=== PATIENT | female | born 1980 | race Caucasian/White ===

== ENCOUNTER 2022-11-06 02:59 | Emergency (ER) | payer OTHER ==
[2022-11-06] MEDS ORDERED: MORPHINE SULFATE 4 MG/ML SYRINGE IVP STA (03:09)
[2022-11-06] MEDS ORDERED: KETOROLAC 15 MG/ML 1 ML VIAL IVP STA (03:09)
[2022-11-06] MEDS ORDERED: ONDANSETRON 4 MG/2 ML VIAL IVP STA (03:09)
[2022-11-06] MEDS ORDERED: SODIUM CHLORIDE 0.9% 1,000 ML IV STA (03:09)
--- NOTE | 2022-11-06 03:18 | ED ---
Abdominal Pain HPI - General Chief Complaint: Abdominal Pain Stated Complaint: Abdominal pain Time Seen by Provider: 11/06/22 03:02 Source: patient, RN notes reviewed, old records reviewed Mode of arrival: ambulatory Limitations: no limitations - History of Present Illness Initial Comments: This is a 42-year-old female to the emergency department for evaluation today. Today she presents for evaluation in regards to abdominal pain with history of gallbladder disease is feels just a prior gallbladder issue and pain. Positive nausea no vomiting symptoms started today multiple attacks prior. No prior surgical evaluation. Patient has no current fevers. No travel history or sick contacts again. No other abdominal surgeries. MD Complaint: abdominal pain -: hour(s) Location: RUQ, epigastric Radiation: RUQ, epigastric Migration to: RUQ Severity: moderate Severity scale (1-10): 4 Quality: cramping Consistency: constant Improves With: nothing Worsens With: nothing Associated Symptoms: nausea, vomiting Treatments Prior to Arrival: other (0) - Related Data Allergies Allergy/AdvReac Type Severity Reaction Status Date / Time No Known Allergies Allergy Verified 11/06/22 03:06 Review of Systems ROS Statement: Those systems with pertinent positive or pertinent negative responses have been documented in the HPI. ROS Other: All systems not noted in ROS Statement are negative. Past Medical History Past Medical History: Thyroid Disorder History of Any Multi-Drug Resistant Organisms: None Reported Past Surgical History: No Surgical Hx Reported Past Psychological History: No Psychological Hx Reported Smoking Status: Former smoker Past Alcohol Use History: Occasional Past Drug Use History: Marijuana General Exam Limitations: no limitations General appearance: alert, in no apparent distress Head exam: Present: atraumatic, normocephalic, normal inspection Eye exam: Present: normal appearance, PERRL, EOMI. Absent: scleral icterus, conjunctival injection, periorbital swelling ENT exam: Present: normal exam, mucous membranes moist Neck exam: Present: normal inspection. Absent: tenderness, meningismus, lymphadenopathy Respiratory exam: Present: normal lung sounds bilaterally. Absent: respiratory distress, wheezes, rales, rhonchi, stridor Cardiovascular Exam: Present: regular rate, normal rhythm, normal heart sounds. Absent: systolic murmur, diastolic murmur, rubs, gallop, clicks GI/Abdominal exam: Present: soft, normal bowel sounds. Absent: distended, tenderness, guarding, rebound, rigid Extremities exam: Present: normal inspection, full ROM, normal capillary refill. Absent: tenderness, pedal edema, joint swelling, calf tenderness Back exam: Present: normal inspection Neurological exam: Present: alert, oriented X3, CN II-XII intact Psychiatric exam: Present: normal affect, normal mood Skin exam: Present: warm, dry, intact, normal color. Absent: rash Course Vital Signs 11/06/22 11/06/22 11/06/22 03:04 03:18 05:00 Temperature 98.1 F 98.4 F 98.6 F Pulse Rate 82 77 74 Respiratory 18 16 16 Rate Blood Pressure 126/84 131/86 128/74 O2 Sat by Pulse 96 98 99 Oximetry - Reevaluation(s) Reevaluation #1: 11/06/22 04:19 Medical record is reviewed Medical Decision Making - Medical Decision Making 42 female to the emergency department for evaluation patient presents today for evaluation of the P [place] attack, patient will follow-up as an outpatient symptoms currently improving patient will be discharged home - Lab Data Result diagrams: 11/06/22 03:18 11/06/22 03:18 Lab Results 11/06/22 11/06/22 Range/Units 03:18 03:18 WBC 9.9 (3.8-10.6) k/uL RBC 4.56 (3.80-5.40) m/uL Hgb 13.6 (11.4-16.0) gm/dL Hct 40.9 (34.0-46.0) % MCV 89.7 (80.0-100.0) fL MCH 29.8 (25.0-35.0) pg MCHC 33.2 (31.0-37.0) g/dL RDW 12.3 (11.5-15.5) % Plt Count 286 (150-450) k/uL MPV 7.8 Neutrophils % 57 % Lymphocytes % 29 % Monocytes % 5 % Eosinophils % 7 % Basophils % 1 % Neutrophils # 5.7 (1.3-7.7) k/uL Lymphocytes # 2.9 (1.0-4.8) k/uL Monocytes # 0.5 (0-1.0) k/uL Eosinophils # 0.7 (0-0.7) k/uL Basophils # 0.1 (0-0.2) k/uL Sodium 138 (137-145) mmol/L Potassium 4.5 (3.5-5.1) mmol/L Chloride 103 (98-107) mmol/L Carbon Dioxide 24 (22-30) mmol/L Anion Gap 11 mmol/L BUN 16 (7-17) mg/dL Creatinine 0.74 (0.52-1.04) mg/dL Est GFR (CKD-EPI)AfAm >90 (>60 ml/min/1.73 sqM) Est GFR (CKD-EPI)NonAf >90 (>60 ml/min/1.73 sqM) Glucose 95 (74-99) mg/dL Calcium 9.7 (8.4-10.2) mg/dL Total Bilirubin 0.4 (0.2-1.3) mg/dL AST 18 (14-36) U/L ALT 31 (4-34) U/L Alkaline Phosphatase 48 (38-126) U/L Total Protein 6.9 (6.3-8.2) g/dL Albumin 4.4 (3.5-5.0) g/dL Amylase 56 (30-110) U/L Lipase 84 (23-300) U/L - Radiology Data Radiology results: report reviewed (CT head and pelvis shows gallstones), image reviewed Disposition Clinical Impression: Abdominal pain, Biliary colic Disposition: HOME SELF-CARE Condition: Good Instructions (If sedation given, give patient instructions): Biliary Colic (ED) Is patient prescribed a controlled substance at d/c from ED?: No Referrals: Vin Lennon MD [STAFF PHYSICIAN] - 1-2 days Time of Disposition: 05:00
[2022-11-06 03:19] VITALS: RESP 16
[2022-11-06 03:37] LABS: Basophils # (A) 0.1 k/uL (0-0.2); Basophils % (A) 1 %; Eosinophils # (A) 0.7 k/uL (0-0.7); Eosinophils % (A) 7 %; HCT 40.9 % (34.0-46.0); HGB 13.6 gm/dL (11.4-16.0); Lymphocytes # (A) 2.9 k/uL (1.0-4.8); Lymphocytes % (A) 29 %; MCH 29.8 pg (25.0-35.0); MCHC 33.2 g/dL (31.0-37.0); MCV 89.7 fL (80.0-100.0); Mean Platelet Volume 7.8; Monocytes # (A) 0.5 k/uL (0-1.0); Monocytes % (A) 5 %; Neutrophils # (A) 5.7 k/uL (1.3-7.7); Neutrophils % (A) 57 %; Platelet Count 286 k/uL (150-450); RBC 4.56 m/uL (3.80-5.40); RDW 12.3 % (11.5-15.5); WBC 9.9 k/uL (3.8-10.6)
[2022-11-06 03:50] LABS: ALT 31 U/L (4-34); AST 18 U/L (14-36); African American GFR (CKD) >90 (>60 ml/min/1.73 sqM); Albumin 4.4 g/dL (3.5-5.0); Alkaline Phosphatase 48 U/L (38-126); Amylase 56 U/L (30-110); Anion Gap 11 mmol/L; Blood Urea Nitrogen 16 mg/dL (7-17); Calcium 9.7 mg/dL (8.4-10.2); Carbon Dioxide 24 mmol/L (22-30); Chloride 103 mmol/L (98-107); Glucose 95 mg/dL (74-99); Lipase 84 U/L (23-300); Non-African American GFR(CKD) >90 (>60 ml/min/1.73 sqM); Potassium 4.5 mmol/L (3.5-5.1); Sodium 138 mmol/L (137-145); Total Bilirubin 0.4 mg/dL (0.2-1.3); Total Protein 6.9 g/dL (6.3-8.2)
--- NOTE | 2022-11-06 04:22 | CT ---
EXAMINATION TYPE: CT abdomen pelvis w con DATE OF EXAM: 11/06/2022 COMPARISON: None HISTORY: abd pain and heartburn CT DLP: 946.2 mGycm Automated exposure control for dose reduction was used. CONTRAST: Performed with IV Contrast, patient injected with 100 mL of Isovue 300. Images obtained from the diaphragm to the floor the pelvis with oral and IV contrast. The lung bases are clear. No pleural effusion. Heart size is normal. No pericardial effusion. The tati er spleen stomach appear intact. There is no pancreatic mass. There are multiple calcified gallstones . The bile ducts are not dilated. There is no adrenal mass. Kidneys show satisfactory contrast opacification. No hydronephrosis. Delaye d images show normal renal excretion. No retroperitoneal adenopathy. Ureters are not dilated. Bladder distends smoothly. No inguinal hernia. Uterus is anteverted. No free fluid in the pelvis. The lumbar vertebrae have normal alignment. No compression fracture. Bony pelvis is intact. The hip j oints are intact. There is no mesenteric edema. No ascites or free air. No sign of a bowel obstruction. There is contra st material in the distal large bowel. There is contrast-filled appendix which is within normal limits. Terminal ileum appears normal. IMPRESSION: No evidence of renal stone or obstruction. Normal appendix. No sign of acute abdomen and pelvis. Cholelithiasis.
[2022-11-06] MEDS ORDERED: IBUPROFEN 600 MG STARTER PACK 4 TAB BTL PO STA (05:08)
[2022-11-06] MEDS ORDERED: ACET/COD 300 MG/30 MG STARTER PACK 6 TAB BTL PO STA (05:08)
[2022-11-06] MEDS ORDERED: ONDANSETRON 4 MG ODT STARTER PACK 2 TAB BTL PO STA (05:08)
[2022-11-06 05:18] VITALS: BP 128/74; PULSE 74; TEMP 98.6
== END 2022-11-06 05:17 | disposition home or self-care (01) ==
LOC: EC 02:59
DX: K80.50 Calculus of bile duct without cholangitis or cholecystitis without obstruction (principal); Z87.891 Personal history of nicotine dependence; F12.90 Cannabis use, unspecified, uncomplicated
CPT/HCPCS: 36415; 80053; 82150; 83690; 85025; 74177; 99284; 96374; 96375 ×2; 96361; J2270; J2405; J1885; S0119; Q9967

== ENCOUNTER 2022-11-25 09:01 | Day surgery (SDC) | payer OTHER ==
[2022-11-22 16:15] VITALS: BMI 29.1
[~2022-11-25 09:01] MED LIST: ACETAMINOPHEN TAB 500 MG TAB PO PRN; DEXAMETHASONE SOD PHOSPHATE 4 MG/ML 1 ML VIAL IV ONE; HEPARIN SODIUM,PORCINE/PF 5,000 UNIT/0.5 ML SYRINGE SQ PRN; HYDROmorphone 0.5 MG/0.5 ML SYRINGE IVP PRN; MIDAZOLAM 2 MG/2 ML VIAL IV PRN; ONDANSETRON 4 MG/2 ML VIAL IVP ONE; SCOPOLAMINE 1 MG/72 HR PATCH TRANSDERM ONE
[2022-11-25 09:46] VITALS: RESP 16; TEMP 98.1
[2022-11-25] MEDS: LACTATED RINGERS 1,000 ML IV SCH ×2 (10:03→11:07)
[2022-11-25] MEDS ORDERED: LIDOCAINE 1% (10MG/ML) FOR IV START INTRADERMA ONE (10:03)
[2022-11-25] MEDS ORDERED: LIDOCAINE 2% INJ 20 MG/ML (2 ML VIAL) ONE (11:04)
[2022-11-25] MEDS ORDERED: ROCURONIUM 10 MG/ML (5 ML VIAL) IV ONE (11:04)
[2022-11-25] MEDS ORDERED: GLYCOPYRROLATE 0.2 MG/ML 2 ML VIAL ONE (11:04)
[2022-11-25] MEDS ORDERED: NEOSTIGMINE 1 MG/ML 10 ML VIAL ONE (11:04)
[2022-11-25] MEDS ORDERED: BUPIVACAIN-EPI 0.25%-1:200,000 30 ML VIAL SQ ONE (11:04)
[2022-11-25] MEDS ORDERED: MIDAZOLAM 2 MG/2 ML VIAL ONE (11:04)
[2022-11-25] MEDS ORDERED: HYDROmorphone (PF) 1 MG/ML ONE (11:04)
[2022-11-25] MEDS ORDERED: fentaNYL (PF) 50 MCG/ML 2 ML AMP ONE (11:04)
[2022-11-25] MEDS ORDERED: PROPOFOL 10 MG/ML 20 ML VIAL IV ONE (11:04)
[2022-11-25] MEDS ORDERED: SUCCINYLCHOLINE CHLORIDE 200 MG/10 ML VIAL IV ONE (11:04)
[2022-11-25] MEDS ORDERED: KETOROLAC 15 MG/ML 1 ML VIAL ONE (11:04)
[2022-11-25] MEDS ORDERED: LACTATED RINGERS 1,000 ML IV ONE (11:53)
[2022-11-25 12:49] VITALS: PULSE 57
--- NOTE | 2022-11-25 12:49 | P.OP ---
Date of Procedure: 11/25/22 Preoperative Diagnosis: Cholecystitis Postoperative Diagnosis: Cholecystitis Procedure(s) Performed: Laparoscopic cholecystectomy Anesthesia: CHRIS Surgeon: Vin Lennon Estimated Blood Loss (ml): 5 Pathology: other (Gallbladder) Condition: stable Disposition: PACU Description of Procedure: The patient was placed on the operating table. The patient received a general endotracheal tube anesthesia. The patients abdomen was prepped and draped in the usual sterile fashion. Through an infraumbilical stab incision, the fascia of the anterior abdominal wall was grasped with a pair of Kochers and then the Veress needle was placed in the peritoneal cavity. Position of the Veress needle was confirmed with positive drop test. The abdomen was then insufflated. After adequate insufflation, the 10 mm trocar was placed in the peritoneal cavity. Following this the laparoscope was placed in the peritoneal cavity. The patient was placed in the head-up, right side up position and then a 5 mm trocar was placed in the right lateral and right subcostal position under direct visualization. A 8 mm trocar was placed in the epigastric position. The gallbladder was grasped in the fundus and infundibulum. Traction on the gallbladder was placed in the lateral and the cephalad positions. The triangle of Calot was visualized.. The cystic duct was bluntly dissected until the union of the cystic duct and common bile duct was seen. A critical view of safety was achieved. The cystic duct was then divided and sealed with the Harmonic scissors. A PDS Endoloop was then placed throughout the cystic duct stump. The cystic artery divided and sealed with the Harmonic scissors. The gallbladder was then removed from the liver bed using Harmonic scissors. The gallbladder was then extracted through the epigastric port site. Operative field was checked for any bleeding spots and Harmonic scissors was used to coagulate the liver bed. The abdomen was irrigated. The trocars were removed. The skin was closed using interrupted 3-0 Vicryl suture. Dermabond dressing were applied. The patient tolerated the procedure well.
[2022-11-25 13:05] VITALS: BP 116/78
[2022-11-25] MEDS ORDERED: ONDANSETRON ODT 4 MG TAB PO ONE (13:55)
== END 2022-11-25 14:15 | disposition home or self-care (01) ==
LOC: OR 09:01
PROVIDERS: ATTEND Surgery
DX: K80.10 Calculus of gallbladder with chronic cholecystitis without obstruction (principal); E03.9 Hypothyroidism, unspecified; Z79.890 Hormone replacement therapy; F12.20 Cannabis dependence, uncomplicated; F41.9 Anxiety disorder, unspecified; F32.A Depression, unspecified; F43.10 Post-traumatic stress disorder, unspecified; F41.0 Panic disorder [episodic paroxysmal anxiety]; Z98.890 Other specified postprocedural states; Z79.1 Long term (current) use of non-steroidal anti-inflammatories (NSAID); Z79.01 Long term (current) use of anticoagulants; Z79.891 Long term (current) use of opiate analgesic; Z79.899 Other long term (current) drug therapy; Z83.3 Family history of diabetes mellitus; Z82.3 Family history of stroke; Z82.49 Family history of ischemic heart disease and other diseases of the circulatory system; Z87.891 Personal history of nicotine dependence; K21.9 Gastro-esophageal reflux disease without esophagitis; Z79.83 Long term (current) use of bisphosphonates
CPT/HCPCS: 81025; 88304; 47562; J2250; J0330; J1100; J2710; J0690; J2405; J3010; J1170; J1885; J2704; J1644; J2001

== ENCOUNTER 2022-11-26 23:24 | Emergency (ER) | payer OTHER ==
[2022-11-26 23:31] VITALS: TEMP 97.6
[2022-11-26] MEDS ORDERED: ONDANSETRON 4 MG/2 ML VIAL IVP STA (23:35)
[2022-11-26] MEDS ORDERED: SODIUM CHLORIDE 0.9% 1,000 ML IV STA (23:35)
[2022-11-26] MEDS ORDERED: MORPHINE SULFATE 4 MG/ML SYRINGE IVP STA (23:37)
[2022-11-27 00:03] LABS: Basophils # (A) 0.1 k/uL (0-0.2); Basophils % (A) 1 %; Eosinophils # (A) 0.3 k/uL (0-0.7); Eosinophils % (A) 2 %; HCT 39.3 % (34.0-46.0); HGB 12.9 gm/dL (11.4-16.0); Lymphocytes # (A) 5.1 k/uL (1.0-4.8); Lymphocytes % (A) 40 %; MCH 29.4 pg (25.0-35.0); MCHC 32.9 g/dL (31.0-37.0); MCV 89.3 fL (80.0-100.0); Mean Platelet Volume 6.8; Monocytes # (A) 0.9 k/uL (0-1.0); Monocytes % (A) 7 %; Neutrophils % (A) 48 %; Platelet Count 310 k/uL (150-450); RDW 12.8 % (11.5-15.5); WBC 12.7 k/uL (3.8-10.6)
[2022-11-27 00:13] LABS: Albumin 4.4 g/dL (3.5-5.0); Calcium 9.6 mg/dL (8.4-10.2); Total Bilirubin 0.3 mg/dL (0.2-1.3); Total Protein 7.3 g/dL (6.3-8.2)
[2022-11-27 00:29] LABS: INR 0.9 (<1.2); Partial Thromboplastin Time 23.2 sec (22.0-30.0); Prothrombin Time 9.9 sec (9.0-12.0)
--- NOTE | 2022-11-27 00:38 | ED ---
Abdominal Pain HPI - General Chief Complaint: Abdominal Pain Stated Complaint: post op GB Time Seen by Provider: 11/26/22 23:32 Source: patient, RN notes reviewed Mode of arrival: ambulatory Limitations: no limitations - History of Present Illness Initial Comments: Patient is a 42-year-old female presenting to the emergency room with complaints of severe abdominal pain, nausea and vomiting which started earlier today. She had a cholecystectomy completed on 11/25/[address] Lennon here at this facility. She reports that she was advised to "take it easy" upon discharge and states that she was not given any dietary restrictions. She reports eating eggs toast multiple protein drinks and a salami sandwich earlier today. She denies severe abdominal pain or persistent nausea vomiting earlier in the day. In addition to her abdominal pain nausea and vomiting she is having hot and cold flashes. With the exception of her recent cholecystectomy she had, her only other past medical history significant for hypothryoidism. - Related Data Home Medications Medication Instructions Recorded Confirmed Cholecalciferol [Vitamin D3 (125 250 mcg PO DAILY 11/22/22 11/25/22 Mcg = 5000 Iu)] DULoxetine HCL [Cymbalta] 60 mg PO HS 11/22/22 11/25/22 Levothyroxine Sodium 125 mcg PO DAILY 11/22/22 11/25/22 Magnesium 600 mg PO DAILY 11/22/22 11/25/22 busPIRone HCL [Buspar] 30 mg PO DAILY 11/22/22 11/25/22 Previous Rx's Medication Instructions Recorded Acetaminophen Tab [Tylenol] 650 mg PO Q6H #30 tab 11/25/22 Docusate [Colace] 100 mg PO BID #20 capsule 11/25/22 Ibuprofen [Motrin] 600 mg PO Q6HR PRN #40 tab 11/25/22 oxyCODONE HCL [OxyIR] 5 mg PO Q6H PRN 3 Days #10 tab 11/25/22 Allergies Allergy/AdvReac Type Severity Reaction Status Date / Time No Known Allergies Allergy Verified 11/26/22 23:31 Review of Systems ROS Statement: Those systems with pertinent positive or pertinent negative responses have been documented in the HPI. ROS Other: All systems not noted in ROS Statement are negative. Past Medical History Past Medical History: Thyroid Disorder History of Any Multi-Drug Resistant Organisms: None Reported Past Surgical History: Cholecystectomy Additional Past Surgical History / Comment(s): colonoscopy. [place] Past Anesthesia/Blood Transfusion Reactions: No Reported Reaction Additional Past Anesthesia/Blood Transfusion Reaction / Comment(s): pts grandfat her after dilaudid administration-was resuscitated. pts sister had a stroke coming out of surgery for brain aneurysm Past Psychological History: Anxiety, Depression, Panic Disorder, PTSD Smoking Status: Former smoker Past Alcohol Use History: Occasional Past Drug Use History: Marijuana - Past Family History Mother Family Medical History: Cancer Additional Family Medical History / Comment(s): at 36 of brain tumor Father Family Medical History: CVA/TIA, Diabetes Mellitus, Hypertension Sister(s) Additional Family Medical History / Comment(s): from brain aneurysm General Exam - General Exam Comments Initial Comments: GENERAL: No acute distress, well developed, well nourished. In pain and vomiting. HEENT: Normocephalic, atraumatic. Pupils equal, round, reactive to light. Moist mucous membranes. LUNGS: No respiratory distress. Clear to auscultation, no adventitious sounds, no use of accessory muscles. HEART: Mild tachycardia. Regular rhythm without murmur, rub, or gallop. ABDOMEN: Normal bowel sounds. Soft, non-distended. Diffuse abdominal tenderness BACK: Normal inspection. EXTREMITIES: No edema. No tenderness. Moves all extremities. NEUROLOGIC: Alert & oriented x 3. CN II-XII grossly intact. PSYCHIATRIC: Anxious and in pain. DERMATOLOGIC: Laparoscopic abdominal incision sites 4 with Dermabond intact, no erythema dehiscence or drainage. Limitations: no limitations Course Vital Signs 11/26/22 11/27/22 11/27/22 23:29 00:30 01:00 Temperature 97.6 F Pulse Rate 102 H 66 62 Respiratory 22 16 16 Rate Blood Pressure 180/115 175/109 160/95 O2 Sat by Pulse 94 L 99 100 Oximetry Medical Decision Making - Medical Decision Making Was pt. sent in by a medical professional or institution (, PA, YARN WRAPPER, urgent care, hospital, or half-way...) When possible be specific @ -No Did you speak to anyone other than the patient for history (EMS, parent, family, police, friend...)? What history was obtained from this source @ -No Did you review nursing and triage notes (agree or disagree)? Why? @ -I reviewed and agree with nursing and triage notes Were old charts reviewed (outside hosp., previous admission, EMS record, old EKG, old radiological studies, urgent care reports/EKG's, half-way records)? Report findings @ -Cholecystectomy operative report and discharge summary Differential Diagnosis (chest pain, altered mental status, abdominal pain women, abdominal pain men, vaginal bleeding, weakness, fever, dyspnea, syncope, heada john, dizziness, GI bleed, back pain, seizure, CVA, palpatations, mental health)? @ -Differential Abdominal Pain Women: Appendicitis, Cholecystitis, diverticulosis, ischemic bowel, pancreatitis, hepatitis, UTI, gastroenteritis, AAA, incarcerated hernia, bowel obstruction, constipation, inflammatory bowel, hepatitis, peptic ulcer disease, splenic infarction, perforated viscus, vulvitis, ovarian torsion, PID, kidney stone, placenta abruption, this is not meant to be an all-inclusive list EKG interpreted by me (3pts min.). @ -None none X-rays interpreted by me (1pt min.). @ -None done CT interpreted by me (1pt min.). @ -CT of the abdomen and pelvis with contrast demonstrates gallbladder absent without any free air or fluid in the abdomen. No fluid collection noted at cholecystectomy site. No evidence of bowel obstruction. U/S interpreted by me (1pt. min.). @ -None done What testing was considered but not performed or refused? (CT, X-rays, U/S, labs)? Why? @ -None What meds were considered but not given or refused? Why? @ -None Did you discuss the management of the patient with other professionals (professionals i.e. , PA, YARN WRAPPER, lab, RT, psych nurse, oncology social worker, sheet metal technician, teacher, tank officer, disease case manager)? Give summary @ -Dr. Lennon Was smoking cessation discussed for >3mins.? @ -No Was critical care preformed (if so, how long)? @ -No Were there social determinants of health that impacted care today? How? (Homelessness, low income, unemployed, alcoholism, drug addiction, transportation, low edu. Level, literacy, decrease access to med. care, prison, rehab)? @ -No Was there de-escalation of care discussed even if they declined (Discuss DNR or withdrawal of care, Hospice)? DNR status @ -No What co-morbidities impacted this encounter? (DM, HTN, Smoking, COPD, CAD, Cancer, CVA, ARF, Chemo, Hep., AIDS, mental health diagnosis, sleep apnea, morbid obesity)? @ -Recent cholecystectomy Was patient admitted / discharged? Hospital course, mention meds given and route, prescriptions, significant lab abnormalities, going to OR and other pertinent info. @ -42-year-old female presents to the emergency room with severe abdominal pain nausea and vomiting ongoing since earlier this evening. She was able to eat and drink earlier today without complications. She reports hot and cold flashes without any known fevers. Recent cholecystectomy report reviewed as indicated above. Given recent surgery will obtain computed tomography scan of abdomen and pelvis with contrast. Will obtain CBC CMP , coags, lactic acid, and blood cultures. Will give IV fluid bolus along with morphine for pain and Zofran for nausea vomiting. CBC reveals mild elevation in WBCs at 12.7 which is likely inflammatory, glucose elevated at 113, lactic acid normal, liver enzymes, amylase, and lipase normal, coags normal. CMP overall unremarkable with the exception of glucose as stated above. CT of the abdomen without acute findings. Etiology of severe pain nausea and vomiting likely secondary to poor dietary adherence postoperatively. Pain persist and vomiting persist despite Zofran and nausea and 1 L fluid bolus. Spoke with Dr. Lennon regarding above findings. He recommended Dilaudid, additional liter fluid bolus additional nausea medication and continued monitoring. Pain much improved and nausea vomiting resolved after Dilaudid, Compazine and additional 1 L fluid bolus. Education regarding dietary restrictions postcholecystectomy reviewed with patient and spouse. Encouraged good oral hydration and use of anti-medics and analgesics provided by surgeon. Encourage follow-up with her surgeon per his recommendations. Return parameters to the emergency room reviewed. Will discharge home in stable condition with follow-up with her surgeon as previously advised. Undiagnosed new problem with uncertain prognosis? @ -No Drug Therapy requiring intensive monitoring for toxicity (Heparin, Nitro, Insulin, Cardizem)? @ -No Were any procedures done? @ -No Diagnosis/symptom? @ -Nausea and vomiting Acute, or Chronic, or Acute on Chronic? @ -Acute Uncomplicated (without systemic symptoms) or Complicated (systemic symptoms)? @ -Complicated Side effects of treatment? @ -No Exacerbation, Progression, or Severe Exacerbation? @ -No Poses a threat to life or bodily function? How? (Chest pain, [place], [place], pneumonia, PE, COPD, DKA, ARF, appy, cholecystitis, CVA, Diverticulitis, Homicidal, Suicidal, threat to staff... and all critical care pts) @ -No Diagnosis/symptom? @ -Postoperative abdominal pain Acute, or Chronic, or Acute on Chronic? @ -Acute Uncomplicated (without systemic symptoms) or Complicated (systemic symptoms)? @ -Complicated Side effects of treatment? @ -none Exacerbation, Progression, or Severe Exacerbation] @ -no Poses a threat to life or bodily function? @ -no Case discussed with Dr. Gonsales - Lab Data Result diagrams: 11/26/22 23:55 11/26/22 23:55 Lab Results 11/26/22 11/26/22 11/26/22 Range/Units 23:55 23:55 23:55 WBC 12.7 H (3.8-10.6) k/uL RBC 4.40 (3.80-5.40) m/uL Hgb 12.9 (11.4-16.0) gm/dL Hct 39.3 (34.0-46.0) % MCV 89.3 (80.0-100.0) fL MCH 29.4 (25.0-35.0) pg MCHC 32.9 (31.0-37.0) g/dL RDW 12.8 (11.5-15.5) % Plt Count 310 (150-450) k/uL MPV 6.8 Neutrophils % 48 % Lymphocytes % 40 % Monocytes % 7 % Eosinophils % 2 % Basophils % 1 % Neutrophils # 6.0 (1.3-7.7) k/uL Lymphocytes # 5.1 H (1.0-4.8) k/uL Monocytes # 0.9 (0-1.0) k/uL Eosinophils # 0.3 (0-0.7) k/uL Basophils # 0.1 (0-0.2) k/uL Manual Slide Review Performed PT (9.0-12.0) sec INR (<1.2) APTT (22.0-30.0) sec Sodium 138 (137-145) mmol/L Potassium 4.0 (3.5-5.1) mmol/L Chloride 106 (98-107) mmol/L Carbon Dioxide 23 (22-30) mmol/L Anion Gap 9 mmol/L BUN 17 (7-17) mg/dL Creatinine 0.94 (0.52-1.04) mg/dL Est GFR (CKD-EPI)AfAm 86 (>60 ml/min/1.73 sqM) Est GFR (CKD-EPI)NonAf 74 (>60 ml/min/1.73 sqM) Glucose 113 H (74-99) mg/dL Plasma Lactic Acid Walker 1.7 (0.7-2.0) mmol/L Calcium 9.6 (8.4-10.2) mg/dL Total Bilirubin 0.3 (0.2-1.3) mg/dL AST 28 (14-36) U/L ALT 27 (4-34) U/L Alkaline Phosphatase 48 (38-126) U/L Total Protein 7.3 (6.3-8.2) g/dL Albumin 4.4 (3.5-5.0) g/dL Amylase 78 (30-110) U/L Lipase 92 (23-300) U/L 11/27/22 Range/Units 00:09 WBC (3.8-10.6) k/uL RBC (3.80-5.40) m/uL Hgb (11.4-16.0) gm/dL Hct (34.0-46.0) % MCV (80.0-100.0) fL MCH (25.0-35.0) pg MCHC (31.0-37.0) g/dL RDW (11.5-15.5) % Plt Count (150-450) k/uL MPV Neutrophils % % Lymphocytes % % Monocytes % % Eosinophils % % Basophils % % Neutrophils # (1.3-7.7) k/uL Lymphocytes # (1.0-4.8) k/uL Monocytes # (0-1.0) k/uL Eosinophils # (0-0.7) k/uL Basophils # (0-0.2) k/uL Manual Slide Review PT 9.9 (9.0-12.0) sec INR 0.9 (<1.2) APTT 23.2 (22.0-30.0) sec Sodium (137-145) mmol/L Potassium (3.5-5.1) mmol/L Chloride (98-107) mmol/L Carbon Dioxide (22-30) mmol/L Anion Gap mmol/L BUN (7-17) mg/dL Creatinine (0.52-1.04) mg/dL Est GFR (CKD-EPI)AfAm (>60 ml/min/1.73 sqM) Est GFR (CKD-EPI)NonAf (>60 ml/min/1.73 sqM) Glucose (74-99) mg/dL Plasma Lactic Acid Walker (0.7-2.0) mmol/L Calcium (8.4-10.2) mg/dL Total Bilirubin (0.2-1.3) mg/dL AST (14-36) U/L ALT (4-34) U/L Alkaline Phosphatase (38-126) U/L Total Protein (6.3-8.2) g/dL Albumin (3.5-5.0) g/dL Amylase (30-110) U/L Lipase (23-300) U/L Disposition Clinical Impression: Postoperative abdominal pain, Nausea and vomiting Disposition: HOME SELF-CARE Condition: Stable Instructions (If sedation given, give patient instructions): Abdominal Pain (ED), Laparoscopic Cholecystectomy (DC), Acute Nausea and Vomiting (ED) Additional Instructions: Please stay well hydrated following a bland low fat diet as tolerated. Please follow-up with your surgeon per his postoperative recommendations. Continue to utilize already prescribed pain medication and nausea medication. Please follow- up with your primary care provider. Please return to the Emergency Department if symptoms worsen or any other concerns. Is patient prescribed a controlled substance at d/c from ED?: No Referrals: Dany Toney MD [Primary Care Provider] - 1-2 days Time of Disposition: 02:54
--- NOTE | 2022-11-27 01:03 | CT ---
EXAMINATION TYPE: CT abdomen pelvis w con DATE OF EXAM: 11/27/2022 COMPARISON: 11/06/2022 HISTORY: Nausea, vomitting, abdominal pain. Pt had gallbladder removed on 11/25/22. CT DLP: 1051.3 mGycm Automated exposure control for dose reduction was used. CONTRAST: Performed with IV Contrast, patient injected with 100ml mL of Isovue 300. Images obtained from the diaphragm to the floor of the pelvis with the IV contrast. The lung bases are clear. No pleural effusion heart size is normal. No pericardial effusion. Liver sp vince appear intact. There is hiatal hernia. Stomach is intact. There is no pancreatic mass. Gallbladd er appears absent. The bile ducts are not dilated. No evidence of any significant fluid collection. There is no adrenal mass. Kidneys show satisfactory contrast opacification. No hydronephrosis. Ureter s are not dilated. No retroperitoneal adenopathy. The bladder distends smoothly. Uterus is anteverted . No free fluid in the pelvis. No pelvic mass. There is some high attenuation in the appendix. Append ix measures 8 mm. No sign of any adjacent inflammation. There is no mesenteric edema. No ascites or free air. No sign of a bowel obstruction. The lumbar spin e is intact. No compression fracture. Bony pelvis is intact. The hip joints are intact. IMPRESSION: Normal appendix. No evidence of acute abdomen and pelvis.
[2022-11-27] MEDS ORDERED: PROCHLORPERAZINE INJ 10 MG/2 ML VIAL IVP STA (01:18)
[2022-11-27] MEDS ORDERED: HYDROmorphone 1 MG/ML 1 ML SYRINGE IVP STA (01:18)
[2022-11-27] MEDS ORDERED: SODIUM CHLORIDE 0.9% 1,000 ML IV STA (01:18)
[2022-11-27 01:39] VITALS: RESP 16
[2022-11-27 02:58] VITALS: BP 169/87; PULSE 78
== END 2022-11-27 02:58 | disposition home or self-care (01) ==
LOC: EC 23:24
DX: G89.18 Other acute postprocedural pain (principal); R10.9 Unspecified abdominal pain; R11.2 Nausea with vomiting, unspecified; E07.9 Disorder of thyroid, unspecified; F41.9 Anxiety disorder, unspecified; F32.A Depression, unspecified; F12.90 Cannabis use, unspecified, uncomplicated; Z79.890 Hormone replacement therapy; Z87.891 Personal history of nicotine dependence
CPT/HCPCS: 99285; 96374; 96375 ×3; 96361 ×2; 36415; 80053; 82150; 83605; 83690; 85025; 85610; 85730; 87040; 74177; J2270; J0780; J2405; J1170; Q9967

== ENCOUNTER 2022-11-28 17:56 | Inpatient (IN) | payer OTHER ==
--- NOTE | 2022-11-28 18:31 | P.GSHP ---
History of Present Illness H&P Date: 11/28/22 Chief Complaint: Abdominal pain This a 42-year-old female who has had complaints of abdominal pain. Patient underwent laparoscopically cholecystectomy on 11/25/2022. She is found have cholecystitis and cholelithiasis. Patient had postoperative pain. She presented back to the emergency room at [facility] her CAT scan and labs at that time were unremarkable. Patient was discharged home. She then presented back to [facility] today. Patient some increased pain. Her CAT scan now shows some fluid in the pelvis suspicious for a bile leak. Patient also has a leukocytosis which is new. Patient's white count is 16,000. Patient states she has pain when she lays down. She is unable to eat. She feels nauseated. Past Medical History Past Medical History: Thyroid Disorder History of Any Multi-Drug Resistant Organisms: None Reported Past Surgical History: Cholecystectomy Additional Past Surgical History / Comment(s): colonoscopy. lasik Past Anesthesia/Blood Transfusion Reactions: No Reported Reaction Additional Past Anesthesia/Blood Transfusion Reaction / Comment(s): pts g randfather after dilaudid administration-was resuscitated. pts sister had a stroke coming out of surgery for brain aneurysm Past Psychological History: Anxiety, Depression, Panic Disorder, PTSD Smoking Status: Light tobacco smoker Past Alcohol Use History: Occasional Past Drug Use History: Marijuana - Past Family History Mother Family Medical History: Cancer Additional Family Medical History / Comment(s): at 36 of brain tumor Father Family Medical History: CVA/TIA, Diabetes Mellitus, Hypertension Sister(s) Additional Family Medical History / Comment(s): from brain aneurysm Medications and Allergies Home Medications Medication Instructions Recorded Confirmed Type Cholecalciferol [Vitamin D3 (125 250 mcg PO DAILY 11/22/22 11/25/22 History Mcg = 5000 Iu)] DULoxetine HCL [Cymbalta] 60 mg PO HS 11/22/22 11/25/22 History Levothyroxine Sodium 125 mcg PO DAILY 11/22/22 11/25/22 History Magnesium 600 mg PO DAILY 11/22/22 11/25/22 History busPIRone HCL [Buspar] 30 mg PO DAILY 11/22/22 11/25/22 History Acetaminophen Tab [Tylenol] 650 mg PO Q6H #30 tab 11/25/22 Rx Docusate [Colace] 100 mg PO BID #20 capsule 11/25/22 Rx Ibuprofen [Motrin] 600 mg PO Q6HR PRN #40 tab 11/25/22 Rx oxyCODONE HCL [OxyIR] 5 mg PO Q6H PRN 3 Days #10 tab 11/25/22 Rx Allergies Allergy/AdvReac Type Severity Reaction Status Date / Time No Known Allergies Allergy Verified 11/26/22 23:31 Surgical - Exam Vital Signs Pulse Resp BP Pulse Ox 65 16 154/87 98 11/28/22 18:10 11/28/22 18:10 11/28/22 18:10 11/28/22 18:10 - General moderate distress - Eyes PERRL - ENT normal pinna, normal nares - Neck no masses - Respiratory normal expansion - Cardiovascular Rhythm: regular - Abdomen Mild tenderness throughout. There is no rebound or guarding Abdomen: tender Results - Imaging Additional studies: Labs performed a [facility] today show white count 16,000. Her liver function tests are within normal limits. There are no new labs at [facility]. Assessment and Plan Assessment: Abdominal pain suspicious for bile leak. Patient will undergo diagnostic laparoscopy and possible drain placement to evaluate for bile leak
[2022-11-28] MEDS ORDERED: SUCCINYLCHOLINE CHLORIDE 200 MG/10 ML VIAL IV ONE (19:00)
[2022-11-28] MEDS ORDERED: KETOROLAC 30 MG/ML 1 ML VIAL ONE (19:00)
[2022-11-28] MEDS ORDERED: PROPOFOL 10 MG/ML 20 ML VIAL IV ONE (19:00)
[2022-11-28] MEDS ORDERED: LIDOCAINE 2% INJ 20 MG/ML (2 ML VIAL) ONE (19:00)
[2022-11-28] MEDS ORDERED: MIDAZOLAM 2 MG/2 ML VIAL ONE (19:00)
[2022-11-28] MEDS ORDERED: fentaNYL (PF) 50 MCG/ML 2 ML AMP ONE (19:00)
[2022-11-28] MEDS ORDERED: KETAMINE 10 MG/ML 20 ML VIAL ONE (19:00)
[2022-11-28] MEDS ORDERED: SODIUM CHLORIDE 0.9% 100 ML with ceFAZolin 2,000 MG IV ONE ×2 (19:07)
[2022-11-28] MEDS ORDERED: LACTATED RINGERS 1,000 ML IV ONE ×3 (19:07→20:00)
[2022-11-28] MEDS ORDERED: LIDOCAINE 1%-EPI 1:100,000 20 ML VIAL SQ ONE (19:34)
[2022-11-28] MEDS ORDERED: ACETAMINOPHEN TAB 325 MG TAB PO PRN (19:55)
[2022-11-28] MEDS ORDERED: HYDROmorphone 0.5 MG/0.5 ML SYRINGE IVP PRN (19:55)
[2022-11-28] MEDS ORDERED: HYDROmorphone 1 MG/ML 1 ML SYRINGE IVP PRN (19:55)
[2022-11-28] MEDS ORDERED: traMADol 50 MG TAB PO PRN (19:55)
[2022-11-28] MEDS ORDERED: HYDROcodone/APAP 5-325MG 1 EACH TAB PO PRN (19:55)
--- NOTE | 2022-11-28 19:55 | P.OP ---
Date of Procedure: 11/28/22 Preoperative Diagnosis: Abdominal pain Postoperative Diagnosis: Bile leak Procedure(s) Performed: Diagnostic laparoscopy and washout peritoneal Cavity with placement of JOANA drain Anesthesia: CHRIS Surgeon: Vin Lennon Estimated Blood Loss (ml): 10 Pathology: none sent Condition: stable Disposition: PACU Description of Procedure: The patient's placed on the operating table in the supine position she received general endotracheal tube anesthesia. Her abdomen was prepped and draped in sterile fashion. The previous skin incision sites were used for trocar sites. The skin incision sites were anesthetized 1% local Xylocaine. Then using an 11 blade incisions were made. Next the fascia was grasped with a pair of [place] clamps at the umbilical site and then the Veress needle was placed. Cavity. Position of the Veress needle was confirmed with positive drop test. After adequate insufflation the 5 mm trochars placed. Cavity. The laparoscope was placed the peritoneal cavity. There was a very minimal bile staining seen in the right upper quadrant. At this point in 8 mm trochars placed in the epigastric position and then 25 mm trochars placed in the right lateral and right epigastric position. The liver was retracted cephalad. There was very minimal bilious fluid seen. This was aspirated. There was some bilious fluid seen the pelvis as well. At this point the abdomen was irrigated with 3 L of normal saline. A JOANA drain is placed in the gallbladder fossa. The cystic duct was examined. The timeout device which had ligated stomach was visualized. This was then placed. There is no obvious bile leak seen from the cystic duct. It was thought that perhaps this was a duct of Luschka leak. The abdomen was 15 was history resolving seen. The JOANA drain had been brought out through a right lateral trocar site. The JOANA drain was secured with 2-0 nylon. The trochars withdrawn. Skin was closed interrupted 3-0 Monocryl suture. Dermabond dressings was applied.
[2022-11-28] MEDS: HYDROcodone/APAP 5-325MG 1 EACH TAB PO PRN (22:46)
[2022-11-28] MEDS: FAMOTIDINE 20 MG TAB PO SCH (22:46)
[2022-11-28] MEDS: DOCUSATE 100 MG CAP PO SCH (22:46)
[2022-11-28] MEDS: KETOROLAC 15 MG/ML 1 ML VIAL IVP SCH (23:40)
--- NOTE | 2022-11-29 00:32 | ED ---
General Adult HPI - General Chief complaint: Abdominal Pain Stated complaint: abd pain Time Seen by Provider: 11/28/22 18:27 Source: patient Mode of arrival: EMS Limitations: no limitations - History of Present Illness Initial comments: This is a 42-year-old female with a past medical history including recent cholecystectomy 3 days ago presents in her Department as a transfer patient from an outside emergency room. The patient was transferred for evaluation by her surgeon who did the initial operation. The patient had increased abdominal pain and was found to have an ileus with possible myositis at this facility. The patient was transferred to be evaluated by her surgeon who was made aware of the patient at the outside facility. The patient had been seen in the emergency department yesterday for similar continued pain but was sent home per the surgeon's request. The patient was seen and evaluated by the surgeon prior to my evaluation and did have the patient admitted to the operating room for acute even evaluate the patient myself. - Related Data Home Medications Medication Instructions Recorded Confirmed Cholecalciferol [Vitamin D3 (125 250 mcg PO DAILY 11/22/22 11/25/22 Mcg = 5000 Iu)] DULoxetine HCL [Cymbalta] 60 mg PO HS 11/22/22 11/25/22 Levothyroxine Sodium 125 mcg PO DAILY 11/22/22 11/25/22 Magnesium 600 mg PO DAILY 11/22/22 11/25/22 busPIRone HCL [Buspar] 30 mg PO DAILY 11/22/22 11/25/22 Previous Rx's Medication Instructions Recorded Acetaminophen Tab [Tylenol] 650 mg PO Q6H #30 tab 11/25/22 Docusate [Colace] 100 mg PO BID #20 capsule 11/25/22 Ibuprofen [Motrin] 600 mg PO Q6HR PRN #40 tab 11/25/22 oxyCODONE HCL [OxyIR] 5 mg PO Q6H PRN 3 Days #10 tab 11/25/22 Allergies Allergy/AdvReac Type Severity Reaction Status Date / Time No Known Allergies Allergy Verified 11/26/22 23:31 Review of Systems ROS Statement: Those systems with pertinent positive or pertinent negative responses have been documented in the HPI. ROS Other: All systems not noted in ROS Statement are negative. Past Medical History Past Medical History: Thyroid Disorder History of Any Multi-Drug Resistant Organisms: None Reported Past Surgical History: Cholecystectomy Additional Past Surgical History / Comment(s): colonoscopy. [email or web address] Past Anesthesia/Blood Transfusion Reactions: No Reported Reaction Additional Past Anesthesia/Blood Transfusion Reaction / Comment(s): pts grandfather after dilaudid administration-was resuscitated. pts sister had a stroke coming out of surgery for brain aneurysm Past Psychological History: Anxiety, Depression, Panic Disorder, PTSD Additional Psychological History / Comment(s): pts sister recently and it has been very tragic for her Smoking Status: Light tobacco smoker Past Alcohol Use History: Occasional Past Drug Use History: Marijuana - Past Family History Mother Family Medical History: Cancer Additional Family Medical History / Comment(s): at 36 of brain tumor Father Family Medical History: CVA/TIA, Diabetes Mellitus, Hypertension Sister(s) Additional Family Medical History / Comment(s): from brain aneurysm General Exam - General Exam Comments Initial Comments: I was unable to perform a physical exam myself as the patient was seen and evaluated by the general surgeon and was taken to the operating room before I could evaluate the patient. Limitations: no limitations Course Vital Signs 11/28/22 11/28/22 18:10 18:28 Temperature 98.5 F Pulse Rate 65 69 Respiratory 16 16 Rate Blood Pressure 154/87 153/103 O2 Sat by Pulse 98 99 Oximetry Procedures - [place] Protocol (Time Out) Patient Identification (2 identifiers required): Chart, Verbal, Arm Band, Name, Birthdate Patient/Legal Cut In Station Operator has Confirmed: Identity, Site, Procedure, Consent Site Marked: Not Applicable Medical Decision Making - Medical Decision Making The patient was initially brought to the emergency Department as a transfer patient. The patient was seen and evaluated by her surgeon, and a full H&P was performed. He did have the patient brought up to the operating room prior to being able to evaluate the patient myself. Admission orders were placed as the patient was finishing up her operation. The patient was not seen and evaluated by myself but was evaluated by the triaging nurse as well as her surgeon at the bedside. The patient was taken up to the operating room in stable condition prior to my full evaluation. Disposition Clinical Impression: Post-operative complication, Acute abdomen Disposition: ADMITTED IP TO THIS [facility] Condition: Stable Is patient prescribed a controlled substance at d/c from ED?: No Time of Disposition: 19:00 Decision to Admit Reason: Admit from EC Decision Date: 11/28/22 Decision Time: 19:00
[2022-11-29] MEDS: KETOROLAC 15 MG/ML 1 ML VIAL IVP SCH ×3 (06:09→18:02)
[2022-11-29 08:57] LABS: Basophils # (A) 0.06 X 10*3/uL (0.00-0.10); Basophils % (A) 0.4 %; Eosinophils # (A) 0.15 X 10*3/uL (0.04-0.35); HCT 34.4 % (37.2-46.3); Immature Grans, Automated 0.4 %; Lymphocytes # (A) 1.56 X 10*3/uL (0.90-5.00); Lymphocytes % (A) 10.8 %; MCH 29.7 pg (27.0-32.0); Mean Platelet Volume 9.6 fL (9.5-12.2); Monocytes # (A) 1.22 X 10*3/uL (0.20-1.00); Monocytes % (A) 8.4 %; NRBC Per 100 WBC 0 /100 WBCS (0.0-0.0); Neutrophils # (A) 11.45 X 10*3/uL (1.80-7.70); Platelet Count 245 X 10*3/uL (140-440); RDW 13.2 % (11.5-14.5)
[2022-11-29] MEDS: FAMOTIDINE 20 MG TAB PO SCH ×2 (08:57→20:22)
[2022-11-29] MEDS: DOCUSATE 100 MG CAP PO SCH (08:57)
[2022-11-29] MEDS ORDERED: ENOXAPARIN 40 MG/0.4 ML SYRINGE SQ SCH (09:00)
[2022-11-29 09:16] LABS: African American GFR (CKD) 122.1 (60.0-200.0); Albumin 3.7 g/dL (3.8-4.9); Albumin/Globulin Ratio 1.85 (1.60-3.17); Anion Gap 9.8 mmol/L (10.00-18.00); Calcium 8.7 mg/dL (8.7-10.3); Carbon Dioxide 26.2 mmol/L (20.0-27.5); Non-African American GFR(CKD) 105.4 (60.0-200.0); Potassium 3.3 mmol/L (3.5-5.5); Total Bilirubin 0.8 mg/dL (0.30-1.20); Total Protein 5.7 g/dL (6.2-8.2)
--- NOTE | 2022-11-29 10:40 | P.CONS ---
History of Present Illness - Reason for Consult Consult date: 11/29/22 - Chief Complaint Medical management - History of Present Illness 43 year old woman with history of hypothyroidism, depression presented as transfer from OSH for suspicion of bile leak. Patient was taken immediately to surgery, and was found to have bile in the hepatic fossa, which was drained. Pelvis was washed out with 3L of normal saline, then JOANA drain left in place on closure. Medicine consulted for medical management. Patient's only complaint is mild abdominal pain with cough, otherwise reports doing well. She reports history of hypothyroidism, and was recently started on buspirone and cymbalta after the unexpected of her sister from a brain aneurysm, which i am told is genetic for her family. Patients ROS is negative for fevers, chills, nausea, vomiting, chest pain, palpitations, sick B, presyncope, cough, dyspnea, constipation, diarrhea, abdominal pain, dysuria, dyschezia, numbness/weakness of extremities. On my evaluation patient was afebrile, hemodynamically stable. CBC shows a 14.5 leukocyte count, mild hemoglobin anemia of 11. Chemistries show hypokalemia at 3.3, otherwise unremarkable. Liver function tests show mild AST of 37 mild ALT elevation of 57, otherwise unremarkable. Alkaline phosphatase was 55. No coags to review. No new imaging to review. All Systems reviewed and pertinent positives and negatives noted in HPI, all other symptoms are negative Gen: in no apparent distress, resting comfortably in bed Eyes: PERRL, no scleral injection or icterus HENT: normocephalic, atraumatic, good hearing acuity, moist mucous membranes Neck: no tracheal deviation, full range of motion Resp: good air exchange, breathing comfortably with no accessory muscle use, no tactile fremitus, clear to auscultation bilaterally CVS: good distal perfusion x 4, no pitting edema, regular rate and rhythm without murmurs GI: soft, NTTP, ND, no hepatosplenomegaly : no suprapubic tenderness, no CVAT, armenta catheter not present MSK: no clubbing, no cyanosis, no noted contractures of extremities Skin: no noted rashes, petechiae; temperature of skin is appropriate Neuro: moving all extremities without signs of weakness, CN II-XII intact Psych: cooperative, euthymic mood, insight and judgment intact Labs and imaging as above Assessment/plan: Hypothyroidism -Resume levothyroxine Depression -Resume Cymbalta, buspirone Status post cholecystectomy with bile leak -Monitor JOANA drain -Care per primary team -Incentive spirometer recommended Patient is full code DVT prophylaxis per primary team Past Medical History Past Medical History: Thyroid Disorder History of Any Multi-Drug Resistant Organisms: None Reported Past Surgical History: Cholecystectomy Additional Past Surgical History / Comment(s): colonoscopy. lasik Past Anesthesia/Blood Transfusion Reactions: No Reported Reaction Additional Past Anesthesia/Blood Transfusion Reaction / Comm: pts grandfather after dilaudid administration-was resuscitated. pts sister had a stroke coming out of surgery for brain aneurysm Past Psychological History: Anxiety, Depression, Panic Disorder, PTSD Additional Psychological History / Comment(s): pts sister recently and it has been very tragic for her Smoking Status: Light tobacco smoker Past Alcohol Use History: Occasional Past Drug Use History: Marijuana - Past Family History Mother Family Medical History: Cancer Additional Family Medical History / Comment(s): at 36 of brain tumor Father Family Medical History: CVA/TIA, Diabetes Mellitus, Hypertension Sister(s) Additional Family Medical History / Comment(s): from brain aneurysm Medications and Allergies Home Medications Medication Instructions Recorded Confirmed Type Cholecalciferol [Vitamin D3 (125 250 mcg PO DAILY 11/22/22 11/29/22 History Mcg = 5000 Iu)] DULoxetine HCL [Cymbalta] 60 mg PO HS 11/22/22 11/29/22 History Levothyroxine Sodium 125 mcg PO DAILY 11/22/22 11/29/22 History Magnesium 600 mg PO DAILY 11/22/22 11/29/22 History busPIRone HCL [Buspar] 30 mg PO DAILY 11/22/22 11/29/22 History Acetaminophen Tab [Tylenol] 650 mg PO Q6H #30 tab 11/25/22 11/29/22 Rx Docusate [Colace] 100 mg PO BID #20 capsule 11/25/22 11/29/22 Rx Ibuprofen [Motrin] 600 mg PO Q6HR PRN #40 tab 11/25/22 11/29/22 Rx oxyCODONE HCL [OxyIR] 5 mg PO Q6H PRN 3 Days #10 tab 11/25/22 11/29/22 Rx Allergies Allergy/AdvReac Type Severity Reaction Status Date / Time No Known Allergies Allergy Verified 11/29/22 10:06 Physical Exam Osteopathic Statement: *. No significant issues noted on an osteopathic structural exam other than those noted in the History and Physical/Consult. Vitals: Vital Signs Temp Pulse Pulse Resp BP BP Pulse Ox 11/29/22 07:31 98.9 F 81 17 123/79 98 11/29/22 04:42 99.0 F 82 18 116/75 94 L 11/28/22 22:15 86 125/84 96 11/28/22 22:00 83 16 117/77 96 11/28/22 21:30 98.2 F 86 16 125/84 96 11/28/22 20:33 85 16 149/87 100 11/28/22 20:18 73 16 127/59 100 11/28/22 20:03 97.2 F L 79 16 131/73 94 L 11/28/22 18:28 98.5 F 69 16 153/103 99 11/28/22 18:10 65 16 154/87 98 Intake and Output 11/28/22 11/29/22 11/29/22 22:59 06:59 14:59 Intake Total 1420 1540 Output Total 80 135 Balance 1340 1405 Intake: IV 1300 Intake, IV Titration 900 Amount Lactated Ringers 1,000 ml 900 @ 125 mls/hr IV .Q8H ONE Rx#:[id number] Oral 120 640 Output: Drainage 40 135 Right Lower Abdomen 40 135 Estimated Blood Loss 40 Other: # Voids 1 2 Weight 79.379 kg Results CBC & Chem 7: 11/29/22 04:37 11/29/22 04:37 Labs: Abnormal Lab Results - Last 24 Hours (Table) 11/29/22 11/29/22 Range/Units 04:37 04:37 WBC 14.50 H (4.50-10.00) X 10*3/uL RBC 3.70 L (4.10-5.20) X 10*6/uL Hgb 11.0 L (12.0-15.0) g/dL Hct 34.4 L (37.2-46.3) % Immature Gran # 0.06 H (0.00-0.04) X 10*3/uL Neutrophils # 11.45 H (1.80-7.70) X 10*3/uL Monocytes # 1.22 H (0.20-1.00) X 10*3/uL Potassium 3.3 L (3.5-5.5) mmol/L Anion Gap 9.80 L (10.00-18.00) mmol/L BUN 7.0 L (9.0-27.0) mg/dL BUN/Creatinine Ratio 10.00 L (12.00-20.00) Ratio AST 37 H (13-35) U/L ALT 57 H (8-44) U/L Total Protein 5.7 L (6.2-8.2) g/dL Albumin 3.7 L (3.8-4.9) g/dL
[2022-11-29] MEDS: PIPERACILLIN-TAZOBACTAM 3.375 GM in SODIUM CHLORIDE 0.9% 100 ML IVPB SCH ×2 (10:59→18:01)
[2022-11-29] MEDS: HYDROcodone/APAP 5-325MG 1 EACH TAB PO PRN ×2 (11:03→16:35)
[2022-11-29] MEDS ORDERED: LEVOTHYROXINE 125 MCG TAB PO SCH (11:15)
[2022-11-29] MEDS ORDERED: busPIRone HCl 10 MG TAB PO SCH (11:15)
[2022-11-29] MEDS ORDERED: MAGNESIUM OXIDE 400 MG TAB PO SCH (11:15)
[2022-11-29] MEDS ORDERED: CHOLECALCIFEROL 125 MCG (5000 IU) TABLET PO SCH (11:15)
[2022-11-29] MEDS: ACETAMINOPHEN TAB 325 MG TAB PO SCH ×2 (11:25→16:38)
--- NOTE | 2022-11-29 13:47 | P.DS ---
Providers Date of admission: 11/28/22 19:55 Expected date of discharge: 11/29/22 Attending physician: Vin Lennon Consults: 11/28/22 19:55 Consult Physician Routine Consulting Provider: Rose Marie Gregorio Consult Reason/Comments: Medical management Do you want consulting provider notified?: Yes Consult Physician Routine Consulting Provider: Shona Dougherty Consult Reason/Comments: ERCP, bile leak Do you want consulting provider notified?: Yes Primary care physician: Dany Toney MD Hospital Course: Discharge diagnosis 1. Bile leak status post Diagnostic laparoscopy and washout peritoneal Cavity with placement of JOANA drain 2. Cholecystitis and cholelithiasis status post laparoscopic cholecystectomy on 11/25/2022 Hospital course This is a 42-year-old female who presented to the hospital with complaints of abdominal pain. She initially presented to [facility] and required a transfer due to computed tomography scan imaging suspicious for a bile leak. She had a laparoscopic cholecystectomy on 04/25/2023. She had postoperative pain. Pain in the right upper quadrant and up into the shoulder blades. Computed tomography scan Shelby Montalvo had shown evidence of possible bile leak. She had evidence of leukocytosis. She is status post diagnostic laparoscopy and washout peritoneal Cavity with placement of JOANA drain. She does report her pain is better today. She continues to have significant bile output through the JOANA drain. The GI service is not available at [facility] this week for ERCP and stent placement. Therefore transferred to [facility] for bile leak with ERCP and stent has been requested. And transfer is in process. Please refer to chart for any further details. Physician Recoating Machine Operator note has been reviewed by physician. Signing provider agrees with the documented findings, assessment, and plan of care. Patient Condition at Discharge: Stable Plan - Discharge Summary Discharge Rx Participant: No New Discharge Prescriptions: No Action DULoxetine HCL [Cymbalta] 60 mg PO HS Magnesium 600 mg PO DAILY Docusate [Colace] 100 mg PO BID #20 capsule Cholecalciferol [Vitamin D3 (125 Mcg = 5000 Iu)] 250 mcg PO DAILY busPIRone HCL [Buspar] 30 mg PO DAILY Levothyroxine Sodium 125 mcg PO DAILY Ibuprofen [Motrin] 600 mg PO Q6HR PRN #40 tab PRN Reason: Pain oxyCODONE HCL [OxyIR] 5 mg PO Q6H PRN 3 Days #10 tab PRN Reason: Pain Acetaminophen Tab [Tylenol] 650 mg PO Q6H #30 tab Discharge Medication List Cholecalciferol [Vitamin D3 (125 Mcg = 5000 Iu)] 250 mcg PO DAILY 11/22/22 [History] DULoxetine HCL [Cymbalta] 60 mg PO HS 11/22/22 [History] Levothyroxine Sodium 125 mcg PO DAILY 11/22/22 [History] Magnesium 600 mg PO DAILY 11/22/22 [History] busPIRone HCL [Buspar] 30 mg PO DAILY 11/22/22 [History] Acetaminophen Tab [Tylenol] 650 mg PO Q6H #30 tab 11/25/22 [Rx] Docusate [Colace] 100 mg PO BID #20 capsule 11/25/22 [Rx] Ibuprofen [Motrin] 600 mg PO Q6HR PRN #40 tab 11/25/22 [Rx] oxyCODONE HCL [OxyIR] 5 mg PO Q6H PRN 3 Days #10 tab 11/25/22 [Rx] Follow up Appointment(s)/Referral(s): Dany Toney MD [Primary Care Provider] - 1-2 days [facility] Visiting Nurse, [NON-STAFF] - ([facility] will call you to arrange a visit. ) Vin Lennon MD [STAFF PHYSICIAN] - 1 Week Activity/Diet/Wound Care/Special Instructions: Transfer to [facility] Discharge Disposition: OTHER INSTITUTION NOT DEFINED
[2022-11-29 19:55] VITALS: BP 131/84; PULSE 76; RESP 18; TEMP 99
[2022-11-29] MEDS ORDERED: DULoxetine HCL 60 MG CAPSULE.DR PO SCH (21:00)
[2022-11-29] MEDS ORDERED: DOCUSATE 100 MG CAP PO SCH (21:00)
== END 2022-11-29 20:57 | disposition other institution (70) | DRG 394 ==
LOC: EC 17:56 → 4SSUR 19:55
PROVIDERS: ADMIT Surgery; ATTEND Surgery
PROC: 0W9G30Z Drainage of Peritoneal Cavity with Drainage Device, Percutaneous Approach (ICD-10-PCS; 2022-11-28)
PROC: 3E1038Z Irrigation of Skin and Mucous Membranes using Irrigating Substance, Percutaneous Approach (ICD-10-PCS; principal; 2022-11-28 19:00)
DX: K91.89 Other postprocedural complications and disorders of digestive system (principal); K56.7 Ileus, unspecified; D64.9 Anemia, unspecified; D72.829 Elevated white blood cell count, unspecified; Z20.822 Contact with and (suspected) exposure to COVID-19; E03.9 Hypothyroidism, unspecified; Z79.890 Hormone replacement therapy; F17.210 Nicotine dependence, cigarettes, uncomplicated; E87.6 Hypokalemia; F32.A Depression, unspecified; F43.10 Post-traumatic stress disorder, unspecified; F41.0 Panic disorder [episodic paroxysmal anxiety]; Z79.899 Other long term (current) drug therapy; Z90.49 Acquired absence of other specified parts of digestive tract
CPT/HCPCS: 80053; 83735; 85025; 87635; 99285

== ENCOUNTER 2023-04-02 20:12 | Emergency (ER) | payer OTHER ==
[2023-04-02 21:07] VITALS: RESP 20
--- NOTE | 2023-04-02 22:03 | XR ---
EXAMINATION TYPE: XR foot complete LT DATE OF EXAM: 04/02/2023 9:34 PM INDICATION: Patient age:Female; 42 years old; Reason for study: injury; COMPARISON: None TECHNIQUE: The left foot was examined in the AP, oblique, and lateral projections. FINDINGS: No evidence of any acute osseous pathology. Soft tissue swelling around the foot. Joints are preserv ed. Accessory ossicle present near the navicular and cuboid bones. Calcaneal plantar spurring is note d. IMPRESSION: 1. No evidence of acute fracture. 2. Soft tissue swelling around the foot.
[2023-04-02] MEDS ORDERED: KETOROLAC 15 MG/ML 1 ML VIAL IM STA (22:07)
--- NOTE | 2023-04-02 22:42 | ED ---
General Adult HPI - General Chief complaint: Extremity Injury, Lower Stated complaint: Fall, Foot Injury Time Seen by Provider: 04/02/23 21:19 Source: patient Mode of arrival: ambulatory Limitations: no limitations - History of Present Illness Initial comments: Patient is a 42-year-old female presents to emergency department for left foot injury. Patient states she tripped down 3 or 4 steps twisting her foot. She has pain in her big toe and around it in the foot. She denies numbness and tingling. Denies issues with range of motion. - Related Data Home Medications Medication Instructions Recorded Confirmed Cholecalciferol [Vitamin D3 (125 250 mcg PO DAILY 11/22/22 11/29/22 Mcg = 5000 Iu)] DULoxetine HCL [Cymbalta] 60 mg PO HS 11/22/22 11/29/22 Levothyroxine Sodium 125 mcg PO DAILY 11/22/22 11/29/22 Magnesium 600 mg PO DAILY 11/22/22 11/29/22 busPIRone HCL [Buspar] 30 mg PO DAILY 11/22/22 11/29/22 Previous Rx's Medication Instructions Recorded Acetaminophen Tab [Tylenol] 650 mg PO Q6H #30 tab 11/25/22 Docusate [Colace] 100 mg PO BID #20 capsule 11/25/22 Ibuprofen [Motrin] 600 mg PO Q6HR PRN #40 tab 11/25/22 oxyCODONE HCL [OxyIR] 5 mg PO Q6H PRN 3 Days #10 tab 11/25/22 Omeprazole Magnesium [PriLOSEC OTC] 20 mg PO DAILY #15 tab 12/30/22 Ondansetron Odt [Zofran Odt] 4 mg PO Q8HR PRN #20 tab 12/30/22 Ibuprofen [Motrin] 800 mg PO Q8HR PRN #30 tab 04/02/23 Allergies Allergy/AdvReac Type Severity Reaction Status Date / Time No Known Allergies Allergy Verified 04/02/23 21:07 Review of Systems ROS Statement: Those systems with pertinent positive or pertinent negative responses have been documented in the HPI. ROS Other: All systems not noted in ROS Statement are negative. Past Medical History Past Medical History: Thyroid Disorder History of Any Multi-Drug Resistant Organisms: None Reported Past Surgical History: Cholecystectomy Additional Past Surgical History / Comment(s): colonoscopy. lasik Past Anesthesia/Blood Transfusion Reactions: No Reported Reaction Additional Past Anesthesia/Blood Transfusion Reaction / Comment(s): pts grandfather after dilaudid administration-was resuscitated. pts sister had a stroke coming out of surgery for brain aneurysm Past Psychological History: Anxiety, Depression, Panic Disorder, PTSD Smoking Status: Light tobacco smoker Past Alcohol Use History: Occasional Past Drug Use History: Marijuana - Past Family History Mother Family Medical History: Cancer Additional Family Medical History / Comment(s): at 36 of brain tumor Father Family Medical History: CVA/TIA, Diabetes Mellitus, Hypertension Sister(s) Additional Family Medical History / Comment(s): from brain aneurysm General Exam Limitations: no limitations General appearance: alert, in no apparent distress Head exam: Present: atraumatic, normocephalic, normal inspection Eye exam: Present: normal appearance, PERRL, EOMI. Absent: scleral icterus, conjunctival injection, periorbital swelling Respiratory exam: Present: normal lung sounds bilaterally. Absent: respiratory distress, wheezes, rales, rhonchi, stridor Cardiovascular Exam: Present: regular rate, normal rhythm, normal heart sounds. Absent: systolic murmur, diastolic murmur, rubs, gallop, clicks Extremities exam: Present: other (bruising to left great toe with tenderness along left great toe and distal aspect of first metatarsal dorsally. Mild swelling. No obvious deformity. Neurovascularly intact. Full range of motion) Neurological exam: Present: alert, oriented X3, CN II-XII intact Psychiatric exam: Present: normal affect, normal mood Skin exam: Present: warm, dry, intact, normal color. Absent: rash Course Vital Signs 04/02/23 04/02/23 21:05 23:07 Temperature 98.4 F 97.8 F Pulse Rate 88 64 Respiratory 20 20 Rate Blood Pressure 131/89 124/88 O2 Sat by Pulse 100 100 Oximetry Medical Decision Making - Medical Decision Making Was pt. sent in by a medical professional or institution (, PA, PATTERN DEVELOPER, urgent care, hospital, or alf...) When possible be specific @ -No Did you speak to anyone other than the patient for history (EMS, parent, family, police, friend...)? What history was obtained from this source @ -No Did you review nursing and triage notes (agree or disagree)? Why? @ -I reviewed and agree with nursing and triage notes Were old charts reviewed (outside hosp., previous admission, EMS record, old EKG, old radiological studies, urgent care reports/EKG's, alf records)? Report findings @ -No old charts were reviewed Differential Diagnosis (chest pain, altered mental status, abdominal pain women, abdominal pain men, vaginal bleeding, weakness, fever, dyspnea, syncope, headache, dizziness, GI bleed, back pain, seizure, CVA, palpatations, mental health)? @ -Sprain, contusion, fracture EKG interpreted by me (3pts min.). @ -As above X-rays interpreted by me (1pt min.). @ -Yes, left foot x-ray shows soft tissue swelling without evidence of fracture CT interpreted by me (1pt min.). @ -None done U/S interpreted by me (1pt. min.). @ -None done What testing was considered but not performed or refused? (CT, X-rays, U/S, labs)? Why? @ -None What meds were considered but not given or refused? Why? @ -None Did you discuss the management of the patient with other professionals (professionals i.e. , PA, PATTERN DEVELOPER, lab, RT, psych nurse, social worker assistant, fine wire drawer, teacher, identification officer, director of casework department)? Give summary @ -No Was smoking cessation discussed for >3mins.? @ -No Was critical care preformed (if so, how long)? @ -No Were there social determinants of health that impacted care today? How? (Homelessness, low income, unemployed, alcoholism, drug addiction, transportation, low edu. Level, literacy, decrease access to med. care, [facility], rehab)? @ -No Was there de-escalation of care discussed even if they declined (Discuss DNR or withdrawal of care, Hospice)? DNR status @ -No What co-morbidities impacted this encounter? (DM, HTN, Smoking, COPD, CAD, Cancer, CVA, ARF, Chemo, Hep., AIDS, mental health diagnosis, sleep apnea, morbid obesity)? @ -None Was patient admitted / discharged? Hospital course, mention meds given and route, prescriptions, significant lab abnormalities, going to OR and other pertinent info. @ -Discharge. Patient has left great toe sprain without evidence of fracture. Pain controlled we discussed symptomatic management at home Undiagnosed new problem with uncertain prognosis? @ -No Drug Therapy requiring intensive monitoring for toxicity (Heparin, Nitro, Insulin, Cardizem)? @ -No Were any procedures done? @ -No Diagnosis/symptom? @Toe sprain Acute, or Chronic, or Acute on Chronic? @ -Acute Uncomplicated (without systemic symptoms) or Complicated (systemic symptoms)? @ -Uncomplicated Side effects of treatment? @ -No Exacerbation, Progression, or Severe Exacerbation? @ -No Poses a threat to life or bodily function? How? (Chest pain, [place], [place], pneumonia, PE, COPD, DKA, ARF, appy, cholecystitis, CVA, Diverticulitis, Homicidal, Suicidal, threat to staff... and all critical care pts) @ -No Dr. Gonsales is my attending Disposition Clinical Impression: Sprain of toe, great, left Disposition: HOME SELF-CARE Instructions (If sedation given, give patient instructions): Foot Sprain (ED) Additional Instructions: Rest and elevate the joint as much as possible. Ice the injury for the next 24- 48 hours. If symptoms continue after, apply warm compress. Take Tylenol or Motrin as needed for pain. Follow-up with primary care provider in 1 to 2 days. Return to the emergency department if you experience new, concerning, or worsening symptoms. Prescriptions: Ibuprofen [Motrin] 800 mg PO Q8HR PRN #30 tab PRN Reason: Pain Is patient prescribed a controlled substance at d/c from ED?: No Referrals: Dany Toney MD [Primary Care Provider] - 1-2 days
[2023-04-02] MEDS ORDERED: ACET/COD 300 MG/30 MG STARTER PACK 6 TAB BTL PO STA (22:45)
[2023-04-02 23:08] VITALS: BP 124/88; PULSE 64; TEMP 97.8
== END 2023-04-02 23:08 | disposition home or self-care (01) ==
LOC: EC 20:12
DX: S93.502A Unspecified sprain of left great toe, initial encounter (principal); E07.9 Disorder of thyroid, unspecified; F12.90 Cannabis use, unspecified, uncomplicated; Z79.890 Hormone replacement therapy; Z86.59 Personal history of other mental and behavioral disorders; Z90.49 Acquired absence of other specified parts of digestive tract; W10.8XXA Fall (on) (from) other stairs and steps, initial encounter
CPT/HCPCS: 73630; 99283; 96372; J1885